=== PATIENT | male | born 1970 | race Caucasian/White ===

== ENCOUNTER 2019-02-01 15:00 | Outpatient (RCR) | payer SELFPAY | END 2019-04-01 | disposition home or self-care (01) | LOC: WSPT | DX: M25.511 Pain in right shoulder (principal) ==

== ENCOUNTER 2019-05-25 10:57 | Outpatient (RCR) | payer SELFPAY | END 2019-08-23 | disposition home or self-care (01) | LOC: WSPT | DX: M25.561 Pain in right knee (principal) ==

== ENCOUNTER 2020-08-22 08:30 | Outpatient (RCR) | payer SELFPAY | END 2020-10-29 | disposition home or self-care (01) | LOC: PT.GENESIS | DX: M25.552 Pain in left hip (principal) ==